=== PATIENT | female | born 1995 | race Caucasian/White ===

== ENCOUNTER 2017-10-21 11:40 | Emergency (ER) | payer OTHER ==
[2017-10-21 12:05] VITALS: BP 122/77
--- NOTE | 2017-10-21 12:40 | UC ---
Throat Pain/Nasal Joseph HPI - HPI Summary HPI Summary: SINUS PAIN AND PRESSURE X 7 DAYS WAS SEEN LAST WEEK BY HER PCP , STARTED ON AUGMENTIN FOR SINUSITIS CONT. TO HAVE CONGESTION , COUGH, FEVER, CHILLS , NECK PAIN , FATIGUE - History of Current Complaint Chief Complaint: UCGeneralIllness Stated Complaint: EARS,SWOLLEN GLANDS,CONGESTION Time Seen by Provider: 10/21/17 11:56 Hx Obtained From: Patient Hx Last Menstrual Period: 09/22/17 ?: No Onset/Duration: Gradual Onset, Lasting Days - 7, Still Present, Worse Since - PAST 2 DAYS Severity: Moderate Pain Intensity: 6 Cough: Nonproductive Associated Signs & Symptoms: Positive: Sinus Discomfort, Nasal Discharge, Fever. Negative: Rash - Allergies/Home Medications Allergies/Adverse Reactions: Allergies Allergy/AdvReac Type Severity Reaction Status Date / Time No Known Allergies Allergy Verified 10/21/17 11:51 Home Medications: Home Medications Amoxicillin/Clavulanate TAB* [Augmentin TAB 875*] 875 mg PO BID 10/21/17 [ History Confirmed 10/21/17] Dm/PE/Acetaminophen/Doxylamine [Nighttime Severe Col... 5-6.25-10-325 mg/15Ml] 30 ml PO BEDTIME PRN 10/21/17 [History Confirmed 10/21/17] Fluticasone/Vilanterol [Breo Ellipta 200-25 Mcg INH] 1 each IH BEDTIME 10/21/17 [History Confirmed 10/21/17] Pseudoephedrine HCL ER TAB* [Sudafed 12 Hour*] 120 mg PO BID 10/21/17 [History Confirmed 10/21/17] PMH/Surg Hx/FS Hx/Imm Hx Respiratory History: Asthma - Surgical History Surgical History: Yes Surgery Procedure, Year, and Place: LEFT KNEE SX. LEFT FOOT SX. WISDOM TEETH EXTRACTIONS. TONSILLECTOMY - Family History Known Family History: Negative: Diabetes - Social History Alcohol Use: Rare Substance Use Type: None Smoking Status (MU): Never Smoked Tobacco Review of Systems Constitutional: Fever, Chills, Fatigue Skin: Negative Eyes: Negative ENT: Sore Throat, Ear Ache, Nasal Discharge Respiratory: Cough Cardiovascular: Negative Gastrointestinal: Negative Genitourinary: Negative Motor: Negative Neurovascular: Negative Is Patient Immunocompromised?: No All Other Systems Reviewed And Are Negative: Yes Physical Exam Triage Information Reviewed: Yes Appearance: Well-Appearing, No Pain Distress, Well-Nourished Vital Signs: Initial Vital Signs Temp 102.1 F 10/21/17 11:56 Pulse 127 10/21/17 11:56 Resp 22 10/21/17 11:56 BP 122/77 10/21/17 11:56 Pulse Ox 98 10/21/17 11:56 Vital Signs Reviewed: Yes Eyes: Positive: Conjunctiva Clear ENT: Positive: Normal ENT inspection, Hearing grossly normal, Pharyngeal erythema, Nasal congestion, Nasal drainage, TMs normal. Negative: TM bulging, TM dull, TM red, Tonsillar swelling, Tonsillar exudate Neck exam: Normal Neck: Positive: Supple, Nontender, No Lymphadenopathy Respiratory Exam: Normal Respiratory: Positive: Chest non-tender, Lungs clear, Normal breath sounds Cardiovascular: Positive: No Murmur, Tachycardia Abdominal Exam: Normal Abdomen Description: Positive: Nontender, Soft. Negative: CVA Tenderness (R), CVA Tenderness (L), Distended, Guarding Bowel Sounds: Positive: Present Skin Exam: Normal Throat Pain/Nasal Course/Dx - Differential Dx/Diagnosis Provider Diagnoses: SINUSITIS. BRONCHITIS Discharge - Sign-Out/Discharge Documenting (check all that apply): Discharge - Discharge Plan Condition: Stable Disposition: HOME Prescriptions: Azithromycin TAB* [Zithromax TAB (Z-SHALINI) 250 mg #6 tabs] 2 tab PO .TODAY, THEN 1 DAILY #1 shalini Patient Education Materials: Acute Bronchitis (ED) Referrals: Non Staff,Doctor [Primary Care Provider] - 5 Days Additional Instructions: CONT. WITH AUGMENTIN , WILL ADD ZPACK FOR 5 DAYS REST, INCREASE FLUID, TYLENOL NEEDED FOR FEVER - Billing Disposition and Condition Condition: STABLE Disposition: HOME
== END 2017-10-21 13:13 | disposition home or self-care (01) ==
LOC: UCCORT 11:40
DX: J32.9 Chronic sinusitis, unspecified (principal); J40 Bronchitis, not specified as acute or chronic; Z79.2 Long term (current) use of antibiotics
CPT/HCPCS: 87502; 99212; G0463